=== PATIENT | female | born 1950 | race Caucasian/White ===

== ENCOUNTER 2017-06-12 06:50 | Day surgery (SDC) | payer MEDICARE, OTHER ==
[~2017-06-12] VITALS: Ht 162.6 cm; Wt 49.9 kg
[~2017-06-12 06:50] MED LIST: PAROXETINE HCL20 MG PO; PROTONIX20 MG PO
--- NOTE | 2017-06-12 08:42 | NUR ---
06/12/17 0842 Janet Ames 0824 PT ARRIVED IN PACU NON-RESPONSIVE TO TACTILE STIMULI. ORAL BITE BLOCK IN PLACE. REU. 0835 PT REACTIVE TO TACTILE STIMULI.
--- NOTE | 2017-06-15 06:44 | OR ---
[facility] [address], [place] [address] Signed DATE OF OPERATION: 06/12/17 SURGEON: Rocky Rachel MD UPPER ENDOSCOPY PREOPERATIVE DIAGNOSES: 1. Epigastric pain. 2. Nausea and vomiting with hematemesis. 3. Melena. POSTOPERATIVE DIAGNOSIS: Small to moderate sized hiatal hernia. PROCEDURES: EGD with CLOtest and biopsies of the antrum. ESTIMATED BLOOD LOSS: None. INDICATIONS: Dede is a 66-year-old female, who has been through a tremendous amount of stress lately. Her had to go in the hospital after years and years of rheumatoid arthritis. Also her mother developed colon cancer at age 77, but now her sister was just diagnosed with stage IV colon cancer at age 65. Dede found herself with epigastric abdominal pain, nausea and vomiting containing some blood and also noticed some black tarry stool. She had been to her primary care provider. She was placed on Protonix. She was asked to see me with respect to the above. She told me she was already feeling better on the Protonix. She had a negative colonoscopy last year in the [facility]. I gave her a pamphlet on upper endoscopy. We looked at that together along with the risks including, but not limited to gas bloating, crampy abdominal pain, bleeding, perforation, requiring surgery, and missed diagnosis. We also discussed the need for IV conscious sedation. She had expressed understanding and wished to proceed. DESCRIPTION OF PROCEDURE: Dede was taken into our endoscopy suite and placed in the supine semi-recumbent position. She was given 4 mg of Versed and 100 mcg of fentanyl to cover the case. The posterior oropharynx was anesthetized with Hurricaine spray. A bite block was utilized for the case. The adult gastroscope was introduced and advanced all the way out into the third portion of the duodenum under direct visualization of camera without Electronically Signed By: ROCKY RACHEL MD 06/12/17 8870 Electronically Signed By: ROCKY RACHEL MD 06/15/17 0842 PATIENT NAME: DEDE DE LEON OPERATIVE REPORT DATE OF : 50 REPORT #: [id number] PHYSICIAN: ROCKY RACHEL MD PCP: SOY STONER PAC REPORT IS CONFIDENTIAL AND NOT TO BE RELEASED WITHOUT AUTHORIZATION [facility] [address], [place] [address] Signed difficulty. The duodenum and pyloric channel were unremarkable. Overall, her stomach was actually good. She has been on Protonix now for several weeks. I could not see any evidence of any old ulcerations or any healing ulcerations. Upon retroflexion of scope, she clearly has a hiatal hernia. There is no gastric or esophageal varices. The scope was withdrawn up through the area of the GE junction, which was compliant without stricture. There was no evidence of [place]'s esophagus. There was no distal esophagitis. The middle and upper esophagus were unremarkable. After this, the gas was suctioned out and the gastroscope removed. Dede tolerated the procedure well. RECOMMENDATIONS: I will see Dede back in my office in 7 to 14 days to review her results. Rocky Rachel MD ALB/MODL /[id number] cc: KELECHI Rice MD Copies: SOY STONER ANDREW L MD ~ Electronically Signed By: ROCKY RACHEL MD 06/12/17 1705 Electronically Signed By: ROCKY RACHEL MD 06/15/17 0842 PATIENT NAME: DEDE DE LEON OPERATIVE REPORT DATE OF : 50 REPORT #: [id number] PHYSICIAN: ROCKY RACHEL MD PCP: SOY STONER REPORT IS CONFIDENTIAL AND NOT TO BE RELEASED WITHOUT AUTHORIZATION
== END 2017-06-12 09:25 | disposition home or self-care (01) ==
LOC: OPS 06:50 → DS 06:50 → OPS 08:15 → DS 08:15 → OPS 09:25
PROVIDERS: Colon & Rectal Surgery
PROC: 0DB78ZX Excision of Stomach, Pylorus, Via Natural or Artificial Opening Endoscopic, Diagnostic (ICD-10-PCS; principal; 2017-06-12 08:15)
DX: K29.50 Unspecified chronic gastritis without bleeding (principal); K92.1 Melena; K44.9 Diaphragmatic hernia without obstruction or gangrene; F41.9 Anxiety disorder, unspecified; F32.9 Major depressive disorder, single episode, unspecified; Z98.890 Other specified postprocedural states; Z80.0 Family history of malignant neoplasm of digestive organs; Z88.0 Allergy status to penicillin; Z79.899 Other long term (current) drug therapy
CPT/HCPCS: 86677; 88305; 99153; G0500; J2250; J3010; J7120